=== PATIENT | female | born 1995 | race African-American/Black ===

== ENCOUNTER 2019-05-24 14:43 | Outpatient (CLI) | payer BC ==
[~2019-05-24 14:43] MED LIST: Magnevist 469MG/ML 20 ML VIAL ONE
--- NOTE | 2019-05-24 17:28 | MRI ---
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 TECHNIQUE: Multiplanar, multisequence MRI of whole brain, plus thin slices through cranial nerve levels, obtaine d pre and post IV injection of 16 mL of MultiHance Gadolinium based contrast agent. FINDINGS: On the 3D axial SSFP sequence, there is patchy hyperintense signal at the right side of the upper jake s covering greater than 1 cm. No such signal abnormality is identified anywhere in the brainstem on t he standard T2-weighted sequence or FLAIR sequence, and therefore this is probably artifact. Ventricles are normal in size and configuration. There is no true intra-axial signal abnormality in a ny location. No abnormal intra-axial enhancement, mass, mass effect, midline shift, restricted diffus ion, or extra-axial fluid collection. Adenoids are diffusely enlarged, as are the palatine tonsils. No destructive osseous lesion involving the clivus. Cavernous sinuses are bilaterally normal and symmetrical. Meckel's caves are normal with no abnormal enhancement or mass. Orbital apices are clear. No abnormal enhancement along the bilateral superior a nd inferior orbital fissures or infraorbital canals (but the far anterior orbits and face are exclude d from suh of view). No abnormal enhancement or mass at foramen ovale or foramen rotundum bilatera lly. Sella turcica appears normal. No impingement on optic chiasm. There is a small blood vessel at the right prepontine cistern that abuts the root entry zone of the r ight trigeminal nerve, probably the right AICA (anterior-inferior cerebellar artery) or one of its br anches. IMPRESSION: 1. Findings suspicious for vascular impingement at the root entry zone of the right trigeminal nerve at the surface of the oscar. 2. The brain is normal. 3. Hyperplasia of the adenoids and palatine tonsils. POS: [facility]
== END 2019-05-24 14:44 | disposition home or self-care (01) ==
LOC: BICMRI 14:43
PROVIDERS: ATTEND Emergency Medicine
DX: G51.9 Disorder of facial nerve, unspecified (principal); J35.3 Hypertrophy of tonsils with hypertrophy of adenoids
CPT/HCPCS: 70553; A9579